=== PATIENT | male | born 2000 | race Caucasian/White ===

== ENCOUNTER 2022-08-18 14:12 | Outpatient (CLI) | payer MEDICAID, SELFPAY ==
--- NOTE | 2022-08-18 14:30 | MR_ITS ---
[employer] [address] [facility], [place] [address] Phone:?[phone] Fax:?[phone] Referring Physician Information: Wili Nicole M.D. [id number] [facility] [address] Phone:?[phone] Fax:?[phone] Patient:Shiva Handley D.O.B:?2000 Sex:?Male Phone:?[phone] [facility] MRN:?[id number] Exam Date:?08/18/2022 ? EXAM: MRI OF THE LUMBAR SPINE WITHOUT CONTRAST CLINICAL INFORMATION: Low back pain with right-sided radiculopathy. TECHNICAL INFORMATION: Sagittal fast spin-echo T2-weighted, T1-weighted, STIR as well as axial fast spin-echo T1 and T2-weighted images of the lumbar spine were obtained on a 1.5 Wilma MRI scanner.?SEDATION:?None.?CONTRAST:?None. INTERPRETATION: No comparison. Straightened lumbar lordosis. No acute fracture or spondylolysis. Conus is normal and terminates at T12. Imaged upper sacrum and paraspinal soft tissue structures are unremarkable. Annular bulging is demonstrated at L5-S1 through L2-3. The lumbar spinal canal is mildly developmentally narrowed. Disc space narrowing is moderate at L5-S1. L5-S1: Mild bilateral subarticular recess narrowing without traversing neural compression or central stenosis. Facets are unremarkable the foramina are patent. L4-5: No central stenosis or traversing neural compression. Mild bilateral facet hypertrophy with patent foramina. L3-4: No central stenosis or traversing neural compression. Mild bilateral facet hypertrophy with patent foramina. L2-3: No central stenosis or traversing neural compression. Facets and foramina are unremarkable. L1-2 and T12-L1: Normal posterior disc margins and facets. Patent foramina. CONCLUSION: Multilevel degenerative lumbar spondylosis, a developmentally narrowed lumbar spinal canal and the following specific notable findings: 1. No disc herniation, significant central stenosis, acute fracture or spondylolysis. 2. No significant lumbar foraminal narrowing. [place] Electronically signed on 08/19/2022 5:14:00 PM by Giancarlo Moy M.D.
== END 2022-08-18 14:13 | disposition home or self-care (01) ==
PROVIDERS: PCP Family Medicine; Visit Provider Family Medicine
DX: M54.50 Low back pain, unspecified (principal); M47.816 Spondylosis without myelopathy or radiculopathy, lumbar region; M54.16 Radiculopathy, lumbar region
CPT/HCPCS: 72148